=== PATIENT | female | born 1965 | race Caucasian/White ===

== ENCOUNTER → 2016-03-05 | Outpatient (CLI) | payer OTHER ==
[~2016-03-05] VITALS: Ht 162.6 cm; Wt 163.2 kg
[~2016-03-05] MED LIST: ADVIL200 MG PO; ALIGN4 MG PO; AMLODIPINE BES2.5 MG PO; AMLODIPINE BESYL5 MG PO; BACTRIM,SEPT1 TABLET PO; BENADRYL25 MG PO; CEFDINIR300 MG PO; CIPRO500 MG PO; COMPAZINE10 MG PO; DIOVAN HCT 11 TABLET PO; DULERA 100 MCG/13 GM IH; DULERA 200 MCG/13 GM IH; FIBER GUMMIES1 EACH PO; HUMALOG100 UNIT/1; HUMULIN N100 UNITS/; HUMULIN R500 UNITS/ SC; HYZAAR 100-21 TABLET PO; LASIX20 MG PO; LEVEMIR100 UNIT/2 SC; LOPRESSOR100 M1; LOPRESSOR100 M1 PO; LOSARTAN POTAS100 MG PO; LOSARTAN-HCTZ1 EAC2 PO; MOTRIN600 MG PO; NORVASC5 MG PO; NOVOLOG 10100 UNITS/ SC; NOVOLOG PE100 UNITS/ SC; OMEPRAZOLE40 M1 PO; PROAIR HFA8.5 GM IH; SALINE NASAL SP45 ML BOTH NARES; SIMVASTATIN5 MG PO; SINGULAIR10 MG PO; TRICOR145 MG PO; ULTRACET1 TABLET PO; ULTRAM50 MG PO; VALSARTAN160 MG PO; VITAMIN D2000 UNIT PO; ZYRTEC10 M3 PO
[2016-03-05 10:12] LABS: POINT-OF-CARE METER ID UU13113694
[2016-03-05 11:28] LABS: POINT-OF-CARE METER ID UU13113819
== END | disposition home or self-care (01) ==
LOC: AMB 09:30
PROVIDERS: Internal Medicine
PROC: 0DJ08ZZ Inspection of Upper Intestinal Tract, Via Natural or Artificial Opening Endoscopic (ICD-10-PCS; principal; 2016-03-05)
DX: K30 Functional dyspepsia (principal); R14.0 Abdominal distension (gaseous); R14.3 Flatulence; R14.2 Eructation; R19.7 Diarrhea, unspecified; R76.8 Other specified abnormal immunological findings in serum; E11.9 Type 2 diabetes mellitus without complications; E78.5 Hyperlipidemia, unspecified; K21.9 Gastro-esophageal reflux disease without esophagitis; I10 Essential (primary) hypertension; E66.01 Morbid (severe) obesity due to excess calories; Z68.44 Body mass index [BMI] 60.0-69.9, adult; G47.30 Sleep apnea, unspecified; E55.9 Vitamin D deficiency, unspecified; Z85.43 Personal history of malignant neoplasm of ovary; Z83.3 Family history of diabetes mellitus; Z80.7 Family history of other malignant neoplasms of lymphoid, hematopoietic and related tissues; Z80.3 Family history of malignant neoplasm of breast
CPT/HCPCS: 82948; B4087; J2250

== ENCOUNTER → 2016-03-12 | Outpatient (CLI) | payer OTHER | END | disposition home or self-care (01) | LOC: NUC 07:28 | DX: R14.0 Abdominal distension (gaseous) (principal) | CPT/HCPCS: 78264; A9541 ==

== ENCOUNTER 2016-07-20 16:21 | Emergency (ER) | payer OTHER ==
[~2016-07-20] VITALS: Ht 162.6 cm; Wt 168.2 kg
[2016-07-20 17:12] LABS: HEMATOCRIT 42.2 % (36.0-46.0); MCH 26.1 PG (29.0-34.0); MCHC 31.8 G/DL (30.0-36.0); MCV 82.3 FL (83-99); PLATELET COUNT 218 K/uL (156-360); RBC DIS.WIDTH-CV 15.3 % (11.8-14.6); RBC DIS.WIDTH-SD 45.2 % (39-53); RED BLOOD COUNT 5.13 M/uL (3.80-5.20); WHITE BLOOD COUNT 7.5 K/uL (4.1-10.2)
[2016-07-20 17:19] LABS: CHLORIDE 101 mEq/L (99-109); POTASSIUM 3.9 mEq/L (3.7-5.4); SODIUM 135 mEq/L (136-147)
[2016-07-20 17:22] LABS: GLUCOSE 217 mg/dL (70-99)
[2016-07-20 17:23] LABS: ANION GAP 9 MEQ/L (2-14)
[2016-07-20 17:24] LABS: TOTAL BILIRUBIN 1.3 mg/dL (0.0-1.0)
[2016-07-20 17:25] LABS: ALKALINE PHOSPHATASE 83 IU/L (3-129)
[2016-07-20 17:26] LABS: GFR ESTIMATE (CALCULATED) > 59 mL/min/
[2016-07-20 17:27] LABS: UREA NITROGEN (BUN) 10 mg/dL (9-23)
[2016-07-20 20:13] LABS: ADD MIUA? YES; BILIRUBIN NEGATIVE; BLOOD NEGATIVE; COLOR YELLOW ((YELLOW)); GLUCOSE (STRIP) 50; KETONES NEGATIVE; LEUKOCYTES NEGATIVE; NITRITE NEGATIVE; PROTEIN (STRIP) 100; UROBILINOGEN 0.2 MG/DL (0.2-1.0)
[2016-07-20 20:16] LABS: BACTERIA NONE SEEN /HPF; EPITHELIAL CELLS 1+ /HPF; MUCUS TRACE /LPF; RED BLOOD CELLS 0-5 /HPF (0-5); UCUL ADDED? NO; WHITE BLOOD CELLS 0-5 /HPF (0-5)
[2016-07-20] MEDS ORDERED: LOMOTIL TABLET1 EACH PO (22:00)
[2016-07-20] MEDS ORDERED: ULTRAM50 MG PO (22:00)
[2016-07-20] MEDS ORDERED: ZOFRAN ODT4 MG PO (22:00)
[2016-07-20 22:33] VITALS: BP 99/84
== END 2016-07-20 22:36 | disposition home or self-care (01) ==
LOC: EME 16:21
DX: K52.9 Noninfective gastroenteritis and colitis, unspecified (principal); E11.9 Type 2 diabetes mellitus without complications; Z79.4 Long term (current) use of insulin; K21.9 Gastro-esophageal reflux disease without esophagitis; F32.9 Major depressive disorder, single episode, unspecified; Z88.0 Allergy status to penicillin; Z85.43 Personal history of malignant neoplasm of ovary; Z90.710 Acquired absence of both cervix and uterus; Z92.21 Personal history of antineoplastic chemotherapy
CPT/HCPCS: 71010; 80053; 81003; 85027; 99281; 99285; J1885; J2405; J7030

== ENCOUNTER 2016-11-17 19:20 | Emergency (ER) | payer OTHER ==
[~2016-11-17] VITALS: Ht 160 cm; Wt 166.8 kg
[~2016-11-17 19:20] MED LIST changes: +LOMOTIL TABLET1 EACH PO; +ZOFRAN ODT4 MG PO
[2016-11-17] MEDS ORDERED: MOTRIN600 MG PO (23:08)
[2016-11-17] MEDS ORDERED: ADULT FOLDING1 EACH MC (23:08)
[2016-11-17 23:31] VITALS: BP 164/89
== END 2016-11-17 23:32 | disposition home or self-care (01) ==
LOC: EME 19:20
DX: M79.672 Pain in left foot (principal); E11.9 Type 2 diabetes mellitus without complications; K21.9 Gastro-esophageal reflux disease without esophagitis; F32.9 Major depressive disorder, single episode, unspecified; F41.9 Anxiety disorder, unspecified; Z85.43 Personal history of malignant neoplasm of ovary; Z88.0 Allergy status to penicillin; Z79.4 Long term (current) use of insulin
CPT/HCPCS: 73630; 99281; 99285

== ENCOUNTER 2017-04-07 20:40 | Inpatient (IN) | payer OTHER ==
[~2017-04-07] VITALS: Ht 160 cm; Wt 172.0 kg
[~2017-04-07 20:40] MED LIST changes: +ADULT FOLDING1 EACH MC; -AMLODIPINE BES2.5 MG PO; +ERGOCALCIF50000 UNIT PO; -VITAMIN D2000 UNIT PO
[2017-04-07 22:00] LABS: HEMOGLOBIN 13.7 G/DL (11.9-15.5); MCH 27.6 PG (29.0-34.0); MCHC 31.9 G/DL (30.0-36.0); MCV 86.5 FL (83-99); PLATELET COUNT 256 K/uL (156-360); RBC DIS.WIDTH-CV 15.1 % (11.8-14.6); RBC DIS.WIDTH-SD 47.8 % (39-53); RED BLOOD COUNT 4.97 M/uL (3.80-5.20); WHITE BLOOD COUNT 11.8 K/uL (4.1-10.2)
[2017-04-07 22:12] LABS: APPEARANCE CLEAR ((CLEAR)); BILIRUBIN NEGATIVE; BLOOD NEGATIVE; COLOR YELLOW ((YELLOW)); GLUCOSE (STRIP) NEGATIVE; KETONES NEGATIVE; LEUKOCYTES NEGATIVE; NITRITE NEGATIVE; PROTEIN (STRIP) 100; SPECIFIC GRAVITY 1.017 (1.000-1.030); UROBILINOGEN 0.2 MG/DL (0.2-1.0)
[2017-04-07 22:12] LABS: ALBUMIN 3.8 g/dL (3.2-4.8); CHLORIDE 106 mEq/L (99-109); POTASSIUM 3.7 mEq/L (3.7-5.4); SODIUM 140 mEq/L (136-147)
[2017-04-07 22:15] LABS: GLUCOSE 73 mg/dL (70-99); TOTAL PROTEIN 8.2 g/dL (6.4-8.3)
[2017-04-07 22:16] LABS: TOTAL BILIRUBIN 0.8 mg/dL (0.0-1.0)
[2017-04-07 22:18] LABS: ALKALINE PHOSPHATASE 85 IU/L (3-129); CREATININE 0.8 mg/dL (0.6-1.3); GFR ESTIMATE (CALCULATED) > 59 mL/min/
[2017-04-07 22:19] LABS: UREA NITROGEN (BUN) 17 mg/dL (9-23)
[2017-04-07 22:20] LABS: AST (GOT) 14 IU/L (2-34)
[2017-04-07 22:21] LABS: ALT (GPT) 12 IU/L (3-49)
[2017-04-07 22:27] LABS: BACTERIA RARE /HPF; EPITHELIAL CELLS 1+ /HPF; HYALINE CASTS 0-5 /LPF; MUCUS TRACE /LPF; RED BLOOD CELLS 0-5 /HPF (0-5); UCUL ADDED? NO; WHITE BLOOD CELLS 0-5 /HPF (0-5)
[2017-04-07 22:28] LABS: QUANTITATIVE HCG < 4.0 MIU/ML
[2017-04-07 22:39] LABS: INTER. NORMALIZED RATIO 1.1
[2017-04-07 22:41] LABS: PTT 34.7 SEC (25-37)
[2017-04-07] MEDS ORDERED: FUROSEMIDE40 MG PO (23:39)
[2017-04-07] MEDS ORDERED: TYLENOL EXTRA500 MG PO (23:42)
[2017-04-07] MEDS ORDERED: ASCORBIC ACID500 M1 PO (23:43)
[2017-04-07] MEDS ORDERED: PROAIR HFA8.5 GM IH (23:43)
[2017-04-08 03:40] VITALS: BP 127/59
[2017-04-08 07:47] VITALS: BP 132/60
[2017-04-08 11:17] VITALS: BP 110/55
[2017-04-08 15:26] VITALS: BP 120/62
[2017-04-08 20:15] VITALS: BP 149/61
[2017-04-09] VITALS: BP 125/74
[2017-04-09 04:26] VITALS: BP 136/58
[2017-04-09 06:55] LABS: BASOPHIL (%) 0.3 % (0-1); EOSINOPHIL (%) 1.8 % (0-5); EOSINOPHIL COUNT 0.2 K/uL (0-0.3); HEMATOCRIT 36.8 % (36.0-46.0); IMMATURE GRANULOCYTE (%) 0.4 % (0.0-0.7); LYMPHOCYTE (%) 13.4 % (15-42); LYMPHOCYTE COUNT 1.3 K/uL (1.0-2.8); MCH 26.8 PG (29.0-34.0); MCHC 30.2 G/DL (30.0-36.0); MCV 88.9 FL (83-99); MONOCYTE (%) 6.5 % (3-12); MONOCYTE COUNT 0.6 K/uL (0-0.8); NEUTROPHIL (%) 77.6 % (45-76); NEUTROPHIL COUNT 7.4 K/uL (1.8-6.4); PLATELET COUNT 221 K/uL (156-360); RBC DIS.WIDTH-CV 15.8 % (11.8-14.6); RBC DIS.WIDTH-SD 50.8 % (39-53); RED BLOOD COUNT 4.14 M/uL (3.80-5.20); WHITE BLOOD COUNT 9.5 K/uL (4.1-10.2)
[2017-04-09 06:58] LABS: HEMOGLOBIN 11.1 G/DL (11.9-15.5)
[2017-04-09 07:12] LABS: CHLORIDE 103 MEQ/L (99-109); CREATININE 0.8 MG/DL (0.6-1.3); GFR ESTIMATE (CALCULATED) > 59 mL/min/; SODIUM 136 MEQ/L (136-147); UREA NITROGEN (BUN) 19 mg/dL (9-23)
[2017-04-09 07:13] LABS: GLUCOSE 203 mg/dL (70-99); POTASSIUM 4.6 MEQ/L (3.7-5.4)
[2017-04-09 08:00] VITALS: BP 131/63
[2017-04-09 11:49] VITALS: BP 114/56
[2017-04-09 16:34] VITALS: BP 123/61
[2017-04-10 00:38] VITALS: BP 121/65
[2017-04-10 06:59] LABS: HEMATOCRIT 36.7 % (36.0-46.0); MCH 26.8 PG (29.0-34.0); MCV 89.5 FL (83-99); PLATELET COUNT 206 K/uL (156-360); RBC DIS.WIDTH-CV 15.5 % (11.8-14.6); RBC DIS.WIDTH-SD 50.7 % (39-53)
[2017-04-10 07:21] LABS: CHLORIDE 100 MEQ/L (99-109); CREATININE 0.8 MG/DL (0.6-1.3); GFR ESTIMATE (CALCULATED) > 59 mL/min/; GLUCOSE 268 mg/dL (70-99); POTASSIUM 4.7 MEQ/L (3.7-5.4); SODIUM 136 MEQ/L (136-147); UREA NITROGEN (BUN) 19 mg/dL (9-23)
[2017-04-10 08:08] VITALS: BP 136/68
[2017-04-10 16:27] VITALS: BP 139/75
[2017-04-10 23:40] VITALS: BP 140/66
[2017-04-10 23:45] VITALS: BP 117/58
[2017-04-11 07:54] VITALS: BP 151/70
[2017-04-11 15:38] VITALS: BP 167/77
[2017-04-12] VITALS: BP 152/73
[2017-04-12 07:07] VITALS: BP 143/69
[2017-04-12 07:41] LABS: BASOPHIL (%) 0.7 % (0-1); BASOPHIL COUNT 0.1 K/uL (0-0.1); EOSINOPHIL (%) 3.1 % (0-5); EOSINOPHIL COUNT 0.2 K/uL (0-0.3); HEMATOCRIT 38.9 % (36.0-46.0); HEMOGLOBIN 12.2 G/DL (11.9-15.5); IMMATURE GRANULOCYTE (%) 0.4 % (0.0-0.7); LYMPHOCYTE (%) 19.9 % (15-42); LYMPHOCYTE COUNT 1.3 K/uL (1.0-2.8); MCH 27.5 PG (29.0-34.0); MCHC 31.4 G/DL (30.0-36.0); MCV 87.6 FL (83-99); MONOCYTE (%) 5.5 % (3-12); MONOCYTE COUNT 0.4 K/uL (0-0.8); NEUTROPHIL (%) 70.4 % (45-76); NEUTROPHIL COUNT 4.7 K/uL (1.8-6.4); PLATELET COUNT 252 K/uL (156-360); RBC DIS.WIDTH-CV 14.7 % (11.8-14.6); RBC DIS.WIDTH-SD 47.6 % (39-53); RED BLOOD COUNT 4.44 M/uL (3.80-5.20); WHITE BLOOD COUNT 6.7 K/uL (4.1-10.2)
[2017-04-12 08:08] LABS: CHLORIDE 99 MEQ/L (99-109); CREATININE 0.7 MG/DL (0.6-1.3); GFR ESTIMATE (CALCULATED) > 59 mL/min/; SODIUM 139 MEQ/L (136-147); UREA NITROGEN (BUN) 17 mg/dL (9-23)
[2017-04-12 08:10] LABS: GLUCOSE 130 mg/dL (70-99)
[2017-04-12] MEDS ORDERED: FUROSEMIDE40 MG PO (12:18)
[2017-04-13] MEDS ORDERED: HUMULIN R500 UNITS/ SC (10:23)
== END 2017-04-12 14:21 | disposition home or self-care (01) | DRG 867 ==
LOC: EME 20:40 → EDOF 23:40 → 2EASTP 23:40 → ENRESERV 23:42 → 2EASTP 04-08 03:02 → 2EAST 04-10 23:00
PROVIDERS: Hospitalist; Internal Medicine; Physician Assistant Medical; Student in an Organized Health Care Education/Training Program
PROC: 5A09357 Assistance with Respiratory Ventilation, Less than 24 Consecutive Hours, Continuous Positive Airway Pressure (ICD-10-PCS; principal; 2017-04-08)
DX: A28.0 Pasteurellosis (principal); L03.116 Cellulitis of left lower limb; I16.0 Hypertensive urgency; I11.0 Hypertensive heart disease with heart failure; I50.33 Acute on chronic diastolic (congestive) heart failure; E11.622 Type 2 diabetes mellitus with other skin ulcer; I83.029 Varicose veins of left lower extremity with ulcer of unspecified site; I87.2 Venous insufficiency (chronic) (peripheral); I87.8 Other specified disorders of veins; L97.929 Non-pressure chronic ulcer of unspecified part of left lower leg with unspecified severity; E66.01 Morbid (severe) obesity due to excess calories; Z68.44 Body mass index [BMI] 60.0-69.9, adult; E11.649 Type 2 diabetes mellitus with hypoglycemia without coma; G47.33 Obstructive sleep apnea (adult) (pediatric); I89.0 Lymphedema, not elsewhere classified; J42 Unspecified chronic bronchitis; J45.909 Unspecified asthma, uncomplicated; K21.9 Gastro-esophageal reflux disease without esophagitis; F32.9 Major depressive disorder, single episode, unspecified; F41.9 Anxiety disorder, unspecified; R01.1 Cardiac murmur, unspecified; M62.81 Muscle weakness (generalized); R11.2 Nausea with vomiting, unspecified; Z22.322 Carrier or suspected carrier of Methicillin resistant Staphylococcus aureus; Z79.4 Long term (current) use of insulin; Z80.7 Family history of other malignant neoplasms of lymphoid, hematopoietic and related tissues; Z85.43 Personal history of malignant neoplasm of ovary; Z86.14 Personal history of Methicillin resistant Staphylococcus aureus infection; Z90.710 Acquired absence of both cervix and uterus
CPT/HCPCS: 71275; 80048; 80053; 80202; 81003; 82948; 83605; 83735; 84702; 85025; 85027; 85379; 85610; 85730; 87040; 87070; 87075; 87076; 87077; 87147; 87185; 87186; 87205; 87641; 87801; 93970; 94640; 94640 76; 94660; 94799; 97110 GP; 97140 GP; 99202; 99281; 99285; J0692; J0696; J1650; J1815; J1940; J1956; J3370; J7030

== ENCOUNTER → 2017-05-10 | Outpatient (CLI) | payer OTHER ==
[~2017-05-10] MED LIST changes: +ASCORBIC ACID500 M1 PO; +FUROSEMIDE40 MG PO; +LASIX40 MG PO; +MAXIPIME2 GM IM; +PROBIOTIC1 EAC1 PO; +TOPROL XL100 MG PO; +TYLENOL EXTRA500 MG PO; +VANCOMYCIN1 GM/150 M IV
== END | disposition home or self-care (01) ==
LOC: PICC 09:28
DX: L03.116 Cellulitis of left lower limb (principal); Z88.0 Allergy status to penicillin; Z88.8 Allergy status to other drugs, medicaments and biological substances; Z91.041 Radiographic dye allergy status
CPT/HCPCS: 76937

== ENCOUNTER 2017-05-17 22:56 | Observation (INO) | payer OTHER ==
[~2017-05-17] VITALS: Ht 160 cm; Wt 170.3 kg
[~2017-05-17 22:56] MED LIST changes: -LASIX40 MG PO; -MAXIPIME2 GM IM; -VANCOMYCIN1 GM/150 M IV
[2017-05-17 23:38] LABS: HEMATOCRIT 38.5 % (36.0-46.0); HEMOGLOBIN 12.3 G/DL (11.9-15.5); MCH 27.9 PG (29.0-34.0); MCHC 31.9 G/DL (30.0-36.0); MCV 87.3 FL (83-99); PLATELET COUNT 213 K/uL (156-360); RBC DIS.WIDTH-CV 15.5 % (11.8-14.6); RBC DIS.WIDTH-SD 48.5 % (39-53); RED BLOOD COUNT 4.41 M/uL (3.80-5.20); WHITE BLOOD COUNT 6.8 K/uL (4.1-10.2)
[2017-05-17 23:50] LABS: CHLORIDE 103 mEq/L (99-109); POTASSIUM 3.6 mEq/L (3.7-5.4); SODIUM 139 mEq/L (136-147)
[2017-05-17 23:52] LABS: GLUCOSE 259 mg/dL (70-99)
[2017-05-17 23:56] LABS: CREATININE 0.8 mg/dL (0.6-1.3); GFR ESTIMATE (CALCULATED) > 59 mL/min/
[2017-05-17 23:57] LABS: UREA NITROGEN (BUN) 17 mg/dL (9-23)
[2017-05-18 01:38] LABS: TROP-I INTERPRETATION NEGATIVE; TROPONIN-I < 0.01 ng/mL (0.0-0.30)
[2017-05-18 05:01] LABS: MAGNESIUM 1.8 mg/dL (1.3-2.7)
[2017-05-18] MEDS ORDERED: VANCOMYCIN1 GM/150 M IV (09:07)
[2017-05-18] MEDS ORDERED: MAXIPIME2 GM IM (09:07)
[2017-05-18] MEDS ORDERED: LASIX40 MG PO (09:08)
[2017-05-18 11:14] LABS: TROP-I INTERPRETATION NEGATIVE; TROPONIN-I < 0.01 ng/mL (0.0-0.30)
[2017-05-18 15:06] VITALS: BP 191/93
[2017-05-18 16:49] LABS: TROP-I INTERPRETATION NEGATIVE; TROPONIN-I < 0.01 ng/mL (0.0-0.30)
[2017-05-18 20:24] VITALS: BP 187/83
[2017-05-19 00:44] VITALS: BP 173/89
[2017-05-19 03:57] VITALS: BP 142/77
[2017-05-19 08:10] VITALS: BP 143/68
[2017-05-19 12:32] VITALS: BP 147/67
[2017-05-19 16:13] VITALS: BP 170/78
[2017-05-19 16:23] LABS: APPEARANCE SL.HAZY ((CLEAR)); BILIRUBIN NEGATIVE; BLOOD NEGATIVE; COLOR AMBER ((YELLOW)); GLUCOSE (STRIP) 50; KETONES NEGATIVE; LEUKOCYTES NEGATIVE; NITRITE NEGATIVE; PROTEIN (STRIP) >=500; SPECIFIC GRAVITY 1.031 (1.000-1.030); UROBILINOGEN 0.2 MG/DL (0.2-1.0)
[2017-05-19 16:32] LABS: BACTERIA NONE SEEN /HPF; EPITHELIAL CELLS 1+ /HPF; MUCUS TRACE /LPF; UCUL ADDED? NO; WHITE BLOOD CELLS 0-5 /HPF (0-5)
[2017-05-19 19:43] VITALS: BP 148/80
[2017-05-22] MEDS ORDERED: BENICAR20 MG PO (09:00)
== END 2017-05-19 20:12 | disposition home or self-care (01) ==
LOC: EME 22:56 → 5WEST 05-18 05:38 → EDOF 05-18 05:38 → ENRESERV 05-18 05:40 → 5WEST 05-18 15:05
PROVIDERS: Hospitalist; Internal Medicine; Physician Assistant
DX: R07.89 Other chest pain (principal); I11.0 Hypertensive heart disease with heart failure; I50.30 Unspecified diastolic (congestive) heart failure; J21.9 Acute bronchiolitis, unspecified; L03.116 Cellulitis of left lower limb; B95.62 Methicillin resistant Staphylococcus aureus infection as the cause of diseases classified elsewhere; B96.5 Pseudomonas (aeruginosa) (mallei) (pseudomallei) as the cause of diseases classified elsewhere; R09.02 Hypoxemia; I89.0 Lymphedema, not elsewhere classified; L97.921 Non-pressure chronic ulcer of unspecified part of left lower leg limited to breakdown of skin; E66.01 Morbid (severe) obesity due to excess calories; Z68.44 Body mass index [BMI] 60.0-69.9, adult; I87.2 Venous insufficiency (chronic) (peripheral); I87.8 Other specified disorders of veins; I27.20 Pulmonary hypertension, unspecified; G47.33 Obstructive sleep apnea (adult) (pediatric); E11.65 Type 2 diabetes mellitus with hyperglycemia; R01.1 Cardiac murmur, unspecified; Z79.4 Long term (current) use of insulin; Z90.49 Acquired absence of other specified parts of digestive tract; Z88.5 Allergy status to narcotic agent; Z88.0 Allergy status to penicillin; Z88.8 Allergy status to other drugs, medicaments and biological substances; Z91.048 Other nonmedicinal substance allergy status; Z91.018 Allergy to other foods; Z83.3 Family history of diabetes mellitus; Z82.49 Family history of ischemic heart disease and other diseases of the circulatory system; Z80.7 Family history of other malignant neoplasms of lymphoid, hematopoietic and related tissues; Z83.49 Family history of other endocrine, nutritional and metabolic diseases; Z85.43 Personal history of malignant neoplasm of ovary; Z90.710 Acquired absence of both cervix and uterus; Z90.79 Acquired absence of other genital organ(s); Z90.722 Acquired absence of ovaries, bilateral
CPT/HCPCS: 71046; 71275; 80048; 80202; 81003; 82948; 83735; 83880; 84484; 85027; 85379; 93005; 94640; 94660; 99202; 99281; 99285; A6260; G0378; J0692; J1644; J1815; J1940; J3370; J7040